=== PATIENT | male | born 1990 | race Caucasian/White ===

== ENCOUNTER 2021-12-27 22:00 | Emergency (ER) | payer SELFPAY ==
--- NOTE | 2021-12-27 22:12 | NUR ---
NO ANSWER WHEN CALLED FROM [facility] FOR TRIAGE
--- NOTE | 2021-12-27 22:19 | NUR ---
NO ANSWER WHEN CALLED FROM [facility] FOR TRIAGE
--- NOTE | 2021-12-27 22:23 | NUR ---
NO ANSWER WHEN CALLED FROM [facility] FOR TRIAGE
--- NOTE | 2021-12-27 22:23 | NUR ---
PATIENT LEFT WITHOUT BEING SEEN BY DR. Quintana. NO FURTHER CARE PROVIDED FOR PATIENT.
== END 2021-12-27 23:23 | disposition left against medical advice (07) ==
LOC: MED 22:00
DX: Z53.21 Procedure and treatment not carried out due to patient leaving prior to being seen by health care provider (principal)